=== PATIENT | female | born 1980 | race Caucasian/White ===

== ENCOUNTER 2023-06-28 19:49 | Emergency (ER) | payer OTHER, SELFPAY ==
[2023-06-28 19:55] VITALS: BP 111/81
[2023-06-28] MEDS: BENADRYL 25 MG PO (21:58)
[2023-06-28] MEDS: DELTASONE 50 MG PO (21:58)
[2023-06-28 22:33] VITALS: BP 93/62
--- NOTE | 2023-06-28 22:34 | ED.GENMED ---
History of Present Illness
General
Chief Complaint: Allergic Reaction
Source: patient
Exam Limitations: none
Time Seen by Provider: 06/28/23 21:45
Nursing documentation reviewed up to this point in time: agreed with
Travel History
Have you had any contact with someone who has COVID-19?: No
Do you have any symptoms of coronavirus? Fever > 100 degrees, chills, cough, shortness of breath, sore throat, loss of taste or smell, muscle aches, or headache?: No
History of Present Illness
History of Present Illness:
Patient with history of nut allergy, presents to ED secondary to sudden onset of eye swelling, itchy rash, and throat tightness, after having pecan at home, prior to arrival. Patient did not take any medication prior to arrival. Since onset of
symptoms, patient states that her symptoms have improved mildly. Denies chest pain. Denies shortness of breath. Denies throat swelling sensation. Denies nausea or vomiting. Denies headache or dizziness.
Review of Systems
Review of Systems
Allergies reviewed?: Yes
All Other Systems: ROS reviewed and negative except as documented in HPI and ROS
Constitutional: Reports no symptoms
EENT: Reports other (Throat tightness)
Respiratory: Reports no symptoms
Cardiac: Reports no symptoms
ABD/GI: Reports no symptoms
: Reports no symptoms
Musculoskeletal: Reports no symptoms
Skin: Reports itching and rash
Neurological: Reports no symptoms
Phy Exam
Physical Exam
Physical Exam:
Physical Exam
General: no apparent distress, not acutely ill. afebrile
Head: nc/at. eomi
Neck: supple. no meningeal signs.
Heart: s1/s2 regular rate and rhythm, no murmur. equal radial pulses.
Lungs: no acute respiratory distress. clear bilaterally
Abdomen: normal bowel sounds. not tender.
Neuro: alert and oriented. no focal neurological deficits
Skin: no rash
Psychiatric: well kept. interactive and cooperative
Extremities: no edema. no calf tenderness. negative homans.
Course
Orders/Labs/Results
Orders:
Orders
06/28/23 21:50
Diphenhydramine [Benadryl] 25 mg PO NOW STA
Prednisone [Deltasone] 50 mg PO NOW STA
Vital Signs
Initial and Last Documented VS:
Initial Vital Signs
Temp Pulse Resp BP Pulse Ox
98.0 F 67 18 111/81 100
06/28/23 19:55 06/28/23 19:55 06/28/23 19:55 06/28/23 19:55 06/28/23 19:55
Last Documented Vital Signs
Temp Pulse Resp BP Pulse Ox
98.0 F 52 14 93/62 98
06/28/23 19:55 06/28/23 22:33 06/28/23 22:33 06/28/23 22:33 06/28/23 22:33
MDM/Problems Addressed
MDM/Problems Addressed:
History and exam consistent with likely recurrent known allergy. Fortunately, patient remains afebrile, hemodynamically stable, and without any acute respiratory distress during observation. Patient given Benadryl and prednisone and observed
further without any worsening symptoms. Patient will be given prescription for 1 more dose of prednisone to be taken tomorrow, if her symptoms persist. Otherwise, patient is stable to be discharged home. Patient states that she already has EpiPen
at home. 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
*Critical Care Note
Total Time (30-74mins, 75-104mins- exclusive of procedures): Not Applicable
ED Attending Note
-
Portions of this chart may have been created with voice recognition software.� Occasional wrong word or��sound alike� substitutions may have occurred due to the inherent limitations of voice recognition software.
Discharge Plan
Departure
Patient Disposition: Home (Routine Discharge)
Date of Disposition: 06/28/23
Time of Disposition: 22:40
Patient with high blood pressure during this ER visit?: Yes
Discharge Problem:
Allergy to nuts
Instructions: Allergy to Nuts or Seeds
Prescriptions:
New
prednisone 50 mg Tablet
50 mg PO DAILY Qty: 1 0RF
Referrals:
PRIVATE,PHYSICIAN [Family Provider] -
Activity Restrictions/Additional Instructions:
As discussed, please follow-up with your explosive specialist for further evaluation and treatment.
Interventions
Interventions:
*Risk Screen - Suicide Last Done: 06/28/23 22:09
*General Assessment Last Done: 06/28/23 22:09
*Neglect/Abuse Screening Last Done: 06/28/23 22:09
ED- Fall Risk Assessment Last Done: 06/28/23 22:09
*ED COVID-19 Vaccine History Last Done: 06/28/23 22:09
*Nursing Disposition Last Done: 06/28/23 22:47
ED- Cardiac Assessment Last Done: 06/28/23 22:09
ED- Pulmonary Assessment Last Done: 06/28/23 22:09
ED-Skin Assessment Last Done: 06/28/23 22:09
Discharge Date and Time
Discharge Date/Time: 06/28/23 22:47
== END 2023-06-28 22:47 | disposition home or self-care (01) ==
LOC: EMR 19:49
PROVIDERS: EMERGENCY PHYSICIAN Emergency Medicine
DX: L50.0 Allergic urticaria (principal); T78.1XXA Other adverse food reactions, not elsewhere classified, initial encounter
CPT/HCPCS: 99283